=== PATIENT | male | born 1970 | race Two or more races ===

== ENCOUNTER 2016-11-26 23:00 | Emergency (ER) | payer OTHER ==
[~2016-11-26] VITALS: Ht 167.6 cm; Wt 83.1 kg
[~2016-11-26 23:00] MED LIST: CAPT25TA3; CEPH-368 PO; IBUP200C8; LISI-170 PO; METH750T87 PO; MUSCLE RELAXOR; OXYC-302 PO; POLY17PO5 PO; depression med
[2016-11-27] MEDS ORDERED: PRAV20TA2 PO (00:54)
[2016-11-27] MEDS ORDERED: ASPI-515 PO (00:55)
[2016-11-27 02:13] LABS: ASPARTATE AMINO TRANSFERASE 16 U/L (15-37); BLOOD UREA NITROGEN 18 mg/dL (7-18)
[2016-11-27 02:19] LABS: IS PT STATUS REG ER OR PRE ER? YES
[2016-11-27 02:57] VITALS: BP 134/84
== END 2016-11-27 03:01 | disposition home or self-care (01) ==
LOC: ED 23:59
DX: R10.12 Left upper quadrant pain (principal); R07.89 Other chest pain; I10 Essential (primary) hypertension; Z90.49 Acquired absence of other specified parts of digestive tract
CPT/HCPCS: 36415; 71010; 80053; 83690; 84484; 85025; 93005

== ENCOUNTER 2018-12-25 16:57 | Emergency (ER) | payer OTHER ==
[~2018-12-25] VITALS: Ht 167.6 cm; Wt 81.9 kg
[~2018-12-25 16:57] MED LIST changes: +ASPI-515 PO; +PRAV20TA2 PO
--- NOTE | 2018-12-25 17:36 | NUR ---
PT HAS CO OF CHEST PAIN SINCE THURSDAY AFTERNOON THAT WAS INTERMITTENT. PT STATES "LAST NIGHT WAS UNCOMFORTABLE TO SLEEP AND HAS BEEN STRESSED OUT ALOT". DENIES NAUSEA AND VOMITING. DENIES PAIN TO PALPITATION. DENIES RADIATION TO EXTREMITIES. PT STATES CHEST FEELS LIKE IT IS BEING COMPRESSED.
[2018-12-25 17:38] VITALS: BP 104/52
[2018-12-25 17:46] LABS: BASOPHILS # (AUTO) 0.01 x10^3/uL (0-0.1); BASOPHILS % (AUTO) 0 % (0-1); EOSINOPHILS % (AUTO) 4 % (1-7); LYMPHOCYTES # (AUTO) 1.97 x10^3/uL (1-3.4); LYMPHOCYTES % (AUTO) 28 % (22-44); MD NO; MEAN CORPUSCULAR HEMOGLOBIN 31.6 pg (27.5-34.5); MEAN CORPUSCULAR HGB CONC 34.4 g/dL (33.2-36.2); MEAN PLATELET VOLUME 9.3 fL (7.4-10.4); MONOCYTES # (AUTO) 0.56 x10^3/uL (0.2-0.8); MONOCYTES % (AUTO) 8 % (2-9); NEUTROPHILS # (AUTO) 4.29 x10^3/uL (1.8-6.8); NEUTROPHILS % (AUTO) 60 % (42-75); PLATELET COUNT 211 x10^3/uL (130-400); RED BLOOD COUNT 4.86 x10^6/uL (4.38-5.82); RED CELL DISTRIBUTION WIDTH 13.1 % (9.4-14.8)
[2018-12-25 17:54] LABS: ALANINE AMINOTRANSFERASE 50 U/L (12-78); ANION GAP 9 mmol/L (5-15); CALCIUM 8.7 mg/dL (8.5-10.1); CHLORIDE 109 mmol/L (98-107)
[2018-12-25 17:59] LABS: ALKALINE PHOSPHATASE 74 U/L (45-117); BILIRUBIN,TOTAL 0.8 mg/dL (0.2-1.0); CREATININE 1.01 mg/dL (0.7-1.3); TOTAL PROTEIN 7.1 g/dL (6.4-8.2); TROPONIN I < 0.015 ng/mL (0.000-0.045)
--- NOTE | 2018-12-25 18:22 | NUR ---
STORAGE BATTERY TESTER APPLIED.
--- NOTE | 2018-12-25 18:40 | NUR ---
Patient/Caregiver given discharge instructions and they have confirmed that they understand the instructions. Patient ambulatory with steady gait.
== END 2018-12-25 18:41 | disposition home or self-care (01) ==
LOC: ED 17:25
DX: R07.2 Precordial pain (principal); I10 Essential (primary) hypertension; F17.200 Nicotine dependence, unspecified, uncomplicated
CPT/HCPCS: 36415; 71045; 80053; 83880; 84484; 85025; 93005; 99284

== ENCOUNTER 2020-07-06 17:00 | Emergency (ER) | payer OTHER ==
[~2020-07-06] VITALS: Ht 167.6 cm; Wt 82.4 kg
[~2020-07-06 17:00] MED LIST changes: -ASPI-515 PO; +ASPI-963 PO; -OXYC-302 PO; +OXYC1TAB14 PO
--- NOTE | 2020-07-06 18:11 | NUR ---
ASSUMED CARE OF PATIENT. PATIENT REPORTS LEFT SIDED CHEST PAIN THAT COMES AND GOES X2 DAYS 11/01. VS STABLE. NURSE SANE ON. NSR NOTED. CALL LIGHT IN PLACE. WILL CONTINUE TO MONITOR.
--- NOTE | 2020-07-06 18:48 | NUR ---
DR DOZIER HAS UPDATED PATIENT
[2020-07-06 19:04] LABS: BASOPHILS % (AUTO) 1 % (0-1); EOSINOPHILS % (AUTO) 5 % (1-7); LYMPHOCYTES % (AUTO) 33 % (22-44); MEAN CORPUSCULAR HEMOGLOBIN 30.8 pg (27.5-34.5); MEAN CORPUSCULAR HGB CONC 34.4 g/dL (33.2-36.2); MEAN PLATELET VOLUME 9.4 fL (7.4-10.4); MONOCYTES % (AUTO) 9 % (2-9); NEUTROPHILS % (AUTO) 53 % (42-75); PLATELET COUNT 183 x10^3/uL (130-400); RED BLOOD COUNT 5.05 x10^6/uL (4.38-5.82)
[2020-07-06 19:06] LABS: MD NO
--- NOTE | 2020-07-06 19:08 | NUR ---
bedside report given to NATHEN Lo
--- NOTE | 2020-07-06 19:15 | NUR ---
report recived from Olivia SENA
[2020-07-06 19:16] LABS: ALBUMIN 4.1 g/dL (3.4-5.0); ANION GAP 6 mmol/L (5-15); CALCIUM 8.7 mg/dL (8.5-10.1); CHLORIDE 108 mmol/L (98-107)
[2020-07-06 19:22] LABS: ALANINE AMINOTRANSFERASE 41 U/L (12-78); ALKALINE PHOSPHATASE 79 U/L (45-117); BILIRUBIN,TOTAL 0.8 mg/dL (0.2-1.0); CREATININE 0.88 mg/dL (0.7-1.3); TROPONIN I < 0.015 ng/mL (0.000-0.045)
[2020-07-06 20:40] VITALS: BP 122/81
== END 2020-07-06 20:41 | disposition home or self-care (01) ==
LOC: ED 20:31
DX: R07.89 Other chest pain (principal); I10 Essential (primary) hypertension; E78.5 Hyperlipidemia, unspecified
CPT/HCPCS: 36415; 71045; 80053; 84484; 85025; 93005; 99285